=== PATIENT | male | born 1995 | race Caucasian/White ===

== ENCOUNTER 2017-09-14 16:39 | Emergency (ER) | payer OTHER ==
[~2017-09-14] VITALS: Ht 175 cm; Wt 68.2 kg
[~2017-09-14 16:39] MED LIST: CLEOCIN HCL300 MG PO; NO HOME MEDICATIONS; ULTRAM 50MG TAB50 MG PO
[2017-09-14 16:50] VITALS: BP 105/65; PULSE 82; TEMP 99.3
[2017-09-14] MEDS ORDERED: ADDERALL20 MG PO (16:54)
[2017-09-14] MEDS ORDERED: CEPHALEXIN500 M1 PO (18:45)
== END 2017-09-14 18:57 | disposition home or self-care (01) ==
LOC: COL.ER 16:39
DX: J02.0 Streptococcal pharyngitis (principal); F90.9 Attention-deficit hyperactivity disorder, unspecified type; F17.200 Nicotine dependence, unspecified, uncomplicated